=== PATIENT | male | born 1970 | race Caucasian/White ===

== ENCOUNTER 2016-11-16 19:01 | Emergency (ER) | payer OTHER ==
--- NOTE | 2016-11-16 20:12 | DIAGNOSTIC IMAGING REPORT ---
PROCEDURE: XR CHEST 2 VIEW INDICATION: FEVER TECHNIQUE: PA and lateral views. COMPARISON: None. FINDINGS: Allowing for suboptimal inspiration, there are mild parenchymal change at the left lung base. Right lung is clear. Heart and mediastinum are normal. Thorax is normal. IMPRESSION: 1. Mild increase parenchymal change at the left medial lung base consistent with atelectasis and/or pneumonia. 2. Otherwise negative chest.
--- NOTE | 2016-11-16 21:01 | ED ORDER SUMMARY ---
..... Patient: ANGELIKA PRITCHARD OrderSheet [facility] VisitID: [id number] [address] [place] [address] 45y, M Registration Date/Time: 11/16/2016 ORDER SHEET Weight: 113.3 kg (stated) Allergies: No Known Drug Allergy GENERAL ORDERS: Chest 2V Urgent (19:11 11/16/2016 EKoroleva P.A.-C) (Ack 19:14 CHagerty ER Cocoa Bean Roaster Helper) (19:52 Stiven) Liquor Merchant (Continuous) (19:11 11/16/2016 EKoroleva P.A.-C) (Ack 19:14 CHagerty ER Cocoa Bean Roaster Helper) (19:28 CBradburn R.N.) Cardiac Panel Stat (19:11 11/16/2016 EKoroleva P.A.-C) (Ack 19:14 CHagerty ER Cocoa Bean Roaster Helper) (19:27 CBradburn R.N.) EKG - ER Stat (19:11 11/16/2016 EKoroleva P.A.-C) (Ack 19:14 CHagerty ER Cocoa Bean Roaster Helper) (19:22 PWeiler ER Tech1) PCT (Procalcitonin) Urgent (19:21 11/16/2016 EKoroleva P.A.-C) (19:28 CBradburn R.N.) (Ack 19:28 CHagerty ER Cocoa Bean Roaster Helper) MEDICATION ORDERS: DuoNeb Neb Tx 1 unit dose (NOW) (19:21 11/16/2016 EKoroleva P.A.-C) (Ack 19:27 CHagerty ER Cocoa Bean Roaster Helper) (19:33 MRobideau) Tylenol PO 650 mg (NOW) (19:53 11/16/2016 EKoroleva P.A.-C) (Ack 20:13 CBradburn R.N.) (20:21 CBradburn R.N.) Azithromycin PO 500 mg (NOW) (20:52 11/16/2016 EKoroleva P.A.-C) (Ack 20:54 CBradburn R.N.) (21:00 CBradburn R.N.) Hydrocodone-APAP PO 5/325 mg (NOW, HIGH ALERT MEDICATION) (20:52 11/16/2016 EKoroleva P.A.-C) (Ack 20:54 CBradburn R.N.) (21:01 CBradburn R.N.) IV FLUIDS: IV Saline Lock (19:11 11/16/2016 EKoroleva P.A.-C) (Ack 19:16 CBradburn R.N.) (19:27 CBradburn R.N.) IV NS : initial bolus 1000 mL (1000 mL/hr), then 1000 mL/hr for X1 (NOW); Osvaldo (19:12 11/16/2016 EKoroleva P.A.-C) (Ack 19:16 CBradburn R.N.) (19:28 CBradburn R.N.) Toradol IV 30 mg (NOW) (19:54 11/16/2016 EKoroleva P.A.-C) (Ack 20:13 CBradburn R.N.) (20:21 CBradburn R.N.) ORDER SHEET NOTES: [Electronically signed by Antonina To P.A.-C (21:13 11/16/2016)] [Electronically signed by Delmy Knight R.N. (21:11/16/2016)] [Electronically locked/signed by Delmy Knight R.N. (21:11/16/2016)]
--- NOTE | 2016-11-16 21:01 | ED CLINICAL REPORT ---
Clinical Report - Physicians/Mid Levels [facility] [address] [place] [address] 11/16/2016 19:02 Patient: ANGELIKA PRITCHARD Time Seen: 19:20 Nov 16 2016. Arrived- By private vehicle. Historian- patient. HISTORY OF PRESENT ILLNESS Chief Complaint: COUGH. This started 3 days and is still present. The illness is described as mild. The patient has had sputum production, a cough and fever. No difficulty breathing, sore throat or nasal discharge. (Patient reports productive cough over the last 3 days with fever. Denies any chest pain earlier, some chest pain with vigorous coughing. Denies any nausea or vomiting. Reports body aches or arthralgias. Denies any hemoptysis. Denies any recent foreign travel. Denies any diarrhea. Denies sick contacts.). Additional history - The patient has had contact with a sick individual. REVIEW OF SYSTEMS No headache, nausea, vomiting or abdominal pain. All systems otherwise negative, except as recorded above. PAST HISTORY No history of asthma. Problems: Gastroenteritis. Puncture Wound. Soft Tissue Foreign Body. Tetanus Status. Immunizations. Back Pain. Ankle Fracture. Bipolar Disorder. Anxiety Reaction. Additional Surgeries: Ankle. Eye. Medications: Omeprazole Oral (Tablet Delayed Release 20 mg) 1 tablet, daily. Hydrochlorothiazide Oral (Capsule 12.5 mg) 1 capsule, daily. PROzac Oral (Capsule 40 mg) 2 capsules, daily. Adderall Oral (Tablet 20 mg) 2 tablets, daily. Allergies: No Known Drug Allergy. SOCIAL HISTORY Current every day light tobacco smoker. No alcohol use. ADDITIONAL NOTES The nursing notes have been reviewed. PHYSICAL EXAM Vital Signs: 11/16/2016 19:06 BP: 152/93. HR: 99. RR: 18. O2 saturation: 98%. Temp: 100.1 F. Pain level now: 4/10. Appearance: Alert. No acute distress. Eyes: Eyes normal inspection. ENT: Pharynx normal. No tonsillar exudate or trismus. CVS: Normal heart rate and rhythm. Heart sounds normal. Respiratory: No respiratory distress. Wheezing present. Mild rhonchi present in the left lung base posteriorly. Breath sounds normal. Abdomen: Soft and nontender. Skin: Skin warm. Neuro: Oriented X 3. LABS, X-RAYS, AND EKG EKG: EKG time: (1921). No acute process. Rate: 97. Normal QRS complex. Normal axis. Normal ST and T waves and QT. The study has been interpreted contemporaneously. The study has been independently viewed by me. The EKG appears to be a good tracing. Chest X-ray: (IMPRESSION: 1. Mild increase parenchymal change at the left medial lung base consistent with atelectasis and/or pneumonia. 2. Otherwise negative chest. Electronically Final signed by:Pietro Moore MD 11/16/2016 8:07:51 PM). Laboratory Tests: CBC w Diff: (MAGGIE: 11/16/2016 19:22) ( MsgRcvd 11/16/2016 20:04) Final results Test Result Flag Units (Reference) WHITE BLOOD COUNT 10.4 K/uL (4.5-11.5) RED BLOOD COUNT 4.84 M/uL (4.50-5.90) HEMOGLOBIN 14.1 gm/dL (13.5-17.5) HEMATOCRIT 41.4 % (41.0-53.0) MEAN CELL VOLUME 86 fL (80-100) MEAN CORPUSCULAR HGB 29 pg (26-34) MEAN CORPUSCULAR HGB CONC 34 g/dL (31-37) RED CELL DISTRIBUTION WIDTH 13.1 % (11.6-14.8) PLATELET COUNT 326 K/uL (150-400) NEUTROPHIL % 71.2 % (50-75) LYMPH % 21.1 L % (25-40) MONO % 7.2 % (3-14) EOSINOPHIL % 0.2 % (0-4) BASOPHIL % 0.3 % (0-2) [id number]: (MAGGIE: 11/16/2016 19:22) ( MsgRcvd 11/16/2016 20:37) Final results Test Result Flag Units (Reference) PROCALCITONIN <0.5 ng/mL (0-0.5) PCT Concentration: Interpretation : Risk/option for action PCT <=0.5 ng/mL : Systemic : Low risk forinfection(sepsis): progression to severeis not likely. : systemic infection.Local bacterial : CAUTION-PCT levelsinfection is : below 0.5 ng/mL do notpossible. : exclude an infection,because localizedinfections (withoutsystemic signs) may beassociated with suchlow levels. If PCT ismeasured very earlyafter a bacterialchallenge (usually <6hours), these valuesmay still be low. Inthis case PCT shouldbe re-assessed 6-24hours later. PCT >0.5 and : Systemic infection: Moderate risk for<= 2 ng/mL : (sepsis) is : progression to severepossible, but : systemic infection.other conditions : The patient should beare known to : closely monitoredelevate PCT. : both clinically andby re-assessing PCTwithin 6-24 hours. PCT > 2 ng/mL : Systemic infection: High risk for(sepsis) is likely: progression to severeunless other : systemic infection.causes are known. : PCT >= 10 ng/mL : Important systemic: High likelihood ofinflammatory : severe sepsis orresponse, almost : septic shock.exclusively due to:severe bacterial :sepsis or septic :shock. : CHEM 13 PANEL: (MAGGIE: 11/16/2016 19:22) ( MsgRcvd 11/16/2016 20:52) Final results Test Result Flag Units (Reference) GLUCOSE 135 H mg/dL (70-110) BUN 16 mg/dL (7-18) CREATININE 1.0 mg/dL (0.6-1.3) Estimated GFR >60 mL/min Estimated GFR- >60 mL/min Note: Persistent reduction over 3 months in eGFR<60 mL/min/1.73 m2 defines CKD. Patients with eGFR values>=60 mL/min/1.73 m2 may also have CKD if evidence ofpersistent proteinuria. Additional information may be foundat www.kidney.org. SODIUM 141 mmol/L (136-145) POTASSIUM 3.6 mmol/L (3.5-5.1) CHLORIDE 102 mmol/L (98-107) CARBON DIOXIDE 25 mmol/L (21-32) CALCIUM 8.9 mg/dL (8.5-10.1) TOTAL PROTEIN 8.2 g/dL (6.4-8.2) ALBUMIN 3.8 g/dL (3.3-5.0) BILIRUBIN, TOTAL 0.2 mg/dL (0.0-1.0) ALKALINE PHOSPHATASE 113 U/L (46-116) AST (SGOT) 20 U/L (15-37) ALT (SGPT) 38 U/L (12-78) CPK 155 U/L (24-260) MAGNESIUM 2.0 mg/dL (1.8-2.4) TROPONIN I <0.05 L ng/mL (0.00-1.5) TROPONIN REFERENCE RANGE:<0.1 NEGATIVE0.1-1.5 INDETERMINANT>1.5 POSITIVE . PROGRESS AND PROCEDURES Course of Care: Here in the ER patient received IV fluid, azithromycin as he has early signs of pneumonia on the left aspect. Patient is a smoker. Smoking cessation encouraged. Patient with no chest pain. Febrile the emergency department, given antipyretics. 11/16/2016 21:00 BP: 134/96. HR: 92. RR: 18. O2 saturation: 97%. Pain level now: 4/10. Patient is stable. Symptoms better. Patient/family counseled. Differential Diagnosis: I considered viral bronchitis, laryngotracheobronchitis, viral pneumonia, bacterial bronchitis, bacterial tracheobronchitis, bacterial pneumonia, tuberculosis, mycoplasmal bronchitis, mycoplasmal pneumonia, chlamydial bronchitis, bronchospasm, irritant bronchospasm, pulmonary embolism and adverse drug reaction as a possible cause of cough in this patient. This is a partial list of diagnoses considered. Disposition: Discharged. CLINICAL IMPRESSION Pneumonia. Vital signs recorded and reviewed; empiric antibiotics given in the ED and prescribed. INSTRUCTIONS Do not work for two days. Drink plenty of fluids. Prescription Medications: Ventolin HFA oral inhaler: inhale 1 puff for 1 week, as needed for wheezing, until symptoms improve. Dispense one (1) unit Substitution is not permissible. Robitussin A-C cough syrup take five (5) mL orally every 4 hours as needed for cough for 3 days. Dispense sixty (60) mL. No refill. Substitution is permissible. Zithromax 250 mg tablets: take 1 orally every day for 4 days. Total course 4 days. No refills. (first dose 11/17/16) Follow-up: Follow up with your doctor in three days as needed. (Electronically signed by Antonina To P.A.-C 11/16/2016 21:13)
--- NOTE | 2016-11-16 21:01 | ED ORDER SUMMARY ---
..... Patient: ANGELIKA PRITCHARD OrderSheet [facility] VisitID: [id number] [address] [place] [address] 45y, M Registration Date/Time: 11/16/2016 ORDER SHEET Weight: 113.3 kg (stated) Allergies: No Known Drug Allergy GENERAL ORDERS: Chest 2V Urgent (19:11 11/16/2016 EKoroleva P.A.-C) (Ack 19:14 CHagerty ER Joint Sealer) (19:52 Stiven) Pourer Bull Ladle (Continuous) (19:11 11/16/2016 EKoroleva P.A.-C) (Ack 19:14 CHagerty ER Joint Sealer) (19:28 CBradburn R.N.) Cardiac Panel Stat (19:11 11/16/2016 EKoroleva P.A.-C) (Ack 19:14 CHagerty ER Joint Sealer) (19:27 CBradburn R.N.) EKG - ER Stat (19:11 11/16/2016 EKoroleva P.A.-C) (Ack 19:14 CHagerty ER Joint Sealer) (19:22 PWeiler ER Tech1) PCT (Procalcitonin) Urgent (19:21 11/16/2016 EKoroleva P.A.-C) (19:28 CBradburn R.N.) (Ack 19:28 CHagerty ER Joint Sealer) MEDICATION ORDERS: DuoNeb Neb Tx 1 unit dose (NOW) (19:21 11/16/2016 EKoroleva P.A.-C) (Ack 19:27 CHagerty ER Joint Sealer) (19:33 MRobideau) Tylenol PO 650 mg (NOW) (19:53 11/16/2016 EKoroleva P.A.-C) (Ack 20:13 CBradburn R.N.) (20:21 CBradburn R.N.) Azithromycin PO 500 mg (NOW) (20:52 11/16/2016 EKoroleva P.A.-C) (Ack 20:54 CBradburn R.N.) (21:00 CBradburn R.N.) Hydrocodone-APAP PO 5/325 mg (NOW, HIGH ALERT MEDICATION) (20:52 11/16/2016 EKoroleva P.A.-C) (Ack 20:54 CBradburn R.N.) (21:01 CBradburn R.N.) IV FLUIDS: IV Saline Lock (19:11 11/16/2016 EKoroleva P.A.-C) (Ack 19:16 CBradburn R.N.) (19:27 CBradburn R.N.) IV NS : initial bolus 1000 mL (1000 mL/hr), then 1000 mL/hr for X1 (NOW); Osvaldo (19:12 11/16/2016 EKoroleva P.A.-C) (Ack 19:16 CBradburn R.N.) (19:28 CBradburn R.N.) Toradol IV 30 mg (NOW) (19:54 11/16/2016 EKoroleva P.A.-C) (Ack 20:13 CBradburn R.N.) (20:21 CBradburn R.N.) ORDER SHEET NOTES: [Electronically signed by Antonina To P.A.-C (21:13 11/16/2016)] [Electronically signed by Delmy Knight R.N. (21:11/16/2016)] [Electronically locked/signed by Delmy Knight R.N. (21:11/16/2016)]
--- NOTE | 2016-11-16 21:01 | ED NURSING NOTES ---
Clinical Report - Nurses [facility] [address] [place] [address] 11/16/2016 19:02 Patient: ANGELIKA PRITCHARD TRIAGE Triage time 19:07. Acuity: LEVEL 3. Chief Complaint: COUGH and FEVER and PAIN ON INSPIRATION and CHEST PAIN. --19:14 Delmy Knight R.N. 19:06 11/16/16. BP: 152/93 taken on the left arm, while lying. HR: 99 (regular and normal rate). RR: 18. O2 saturation: 98% on room air. Temp: 100.1 F (oral). Pain level now: 10/13. --19:14 Dlemy Knight R.N. Weight: 113.3 kg stated. Height/Length: 70 inches Per Patient. BMI: 35.8. --19:09 Delmy Knight R.N. Medications Adderall Oral (Tablet 20 mg) 2 tablets, daily. --19:10 Delmy Knight R.N. PROzac Oral (Capsule 40 mg) 2 capsules, daily. --19:11 Delmy Knight R.N. Hydrochlorothiazide Oral (Capsule 12.5 mg) 1 capsule, daily. --19:11 Delmy Knight R.N. Omeprazole Oral (Tablet Delayed Release 20 mg) 1 tablet, daily. --19:11 Delmy Knight R.N. Allergies No Known Drug Allergy. --19:12 Delmy Knight R.N. History Arrived by private vehicle. Historian: patient. Accompanied by friend. Primary physician (Lakshmi at [facility]). Onset was gradual. (3 days ago). He has had fatigue (3 days ago). He has had difficulty breathing (3 days ago). He has had moderate chest congestion (3 days ago). PAST MEDICAL HX: Immunizations: up-to-date. SOCIAL HX: Light tobacco smoker (cigarette)- less than 1/2 a pack per day. No alcohol use or drug use. ABUSE ASSESSMENT: No report of abuse. SELF HARM ASSESSMENT: A self harm assessment was performed. The patient answered "no" to the question "Have you recently felt down, depressed, or hopeless?", "Have you noticed less interest or pleasure in doing things?", "Do you have thoughts of harming or killing yourself?", "Are you here because you tried to hurt yourself?", "Have you ever tried to hurt yourself before today?", "Have you recently had thoughts about harming or killing others?" and "Do you have any dangerous items in your possession?". FALL RISK ASSESSMENT: Fall risk assessment completed. No fall risk identified. NUTRITIONAL RISK ASSESSMENT: The nutritional risk assessment revealed no deficiencies. FUNCTIONAL ASSESSMENT: Functional assessment: no impairments noted. LEARNING NEEDS ASSESSMENT: The learning needs assessment revealed no barriers. SKIN INTEGRITY ASSESSMENT: Skin integrity risk assessment completed. No skin integrity risk identified. --19:14 Delmy Knight R.N. PROBLEMS: Gastroenteritis. Puncture Wound. Soft Tissue Foreign Body. Tetanus Status. Immunizations. Back Pain. Ankle Fracture. Bipolar Disorder. Anxiety Reaction. --19:12 Delmy Knight R.N. ADDITIONAL SURGERIES: Ankle. Eye. --19:12 Delmy Knight R.N. Interventions ID band on patient. --19:14 Delmy Knight R.N. PHYSICAL ASSESSMENT Ambulatory to room. GENERAL / NEURO / PSYCH: Alert. Oriented X 4. Appears in no acute distress. HEENT: Pupils equal, round and reactive to light. Ears within normal limits. Nares within normal limits. Mouth within normal limits upon inspection. Pharynx within normal limits. Voice within normal limits. Mucous membranes are pink. RESPIRATORY: Mild respiratory distress. Respirations not labored. Abnormal breath sounds in the bases bilaterally. Nonproductive cough. CVS: Normal sinus rhythm noted. SKIN: Skin is warm and dry. Normal skin turgor. --19:15 Demly Knight R.N. NURSING PROGRESS NOTES Two patient identifiers checked. Call light placed in reach. Side rails up x 1. Bed placed in lowest position. Brakes of bed on. --19:15 Delmy Knight R.N. Patient ready for evaluation- chart flagged. --19:15 Delmy Knight R.N. EKG time: (1921). EKG was ordered, performed by a tech and shown to the PA. --19:23 Qasim Nagel, SONALI Tech1 19:22 11/16/2016 Site #1 started via IV in the right wrist with an 18g angiocath, with aseptic technique and good blood return; one attempt. Blood drawn: rainbow set. Labeled in the presence of the patient and sent to the lab. Saline lock flushed with 10 mL saline. --19:27 Delmy Knight R.N. 19:24 11/16/2016 Started bag #1 1000 mL IV Fluids IV NS (Saline); bolus of 1000 mL wide open then over 1 hour(s) via site #1. Allergies verified and confirmed 5 rights. IV patency established. IV site checked: no pain, redness, or swelling. IV flushed thoroughly pre- and post-medication administration. --19:28 Delmy Knight R.N. 19:33 11/16/2016 Duoneb (Ipratropium-Albuterol) Neb TX Nebulizer 1 unit dose given. Given by the respiratory therapist. Allergies verified and confirmed 5 rights. --19:33 Bennett Rivas 20:14 11/16/2016 Tylenol (Acetaminophen) PO Tablets 650 mg given. Allergies verified and confirmed 5 rights. --20:21 Delmy Knight R.N. 20:15 11/16/2016 IV Fluids IV NS Discontinued: bag #1 completed. Total amount infused: 1000 mL. IV patency established. IV site checked: no pain, redness, or swelling. IV flushed thoroughly. --20:20 Delmy Knight R.N. 20:16 11/16/2016 Toradol IVP 30 mg given over 2 minute(s) via site #1. Allergies verified and confirmed 5 rights. IV patency established. IV site checked: no pain, redness, or swelling. IV flushed thoroughly pre- and post-medication administration. IVP given by RN. --20:21 Delmy Knight R.N. 20:15 11/16/16. BP: 152/76. HR: 99 (regular and normal rate). RR: 16. O2 saturation: 96% on room air. Temp: deferred. Pain level now: 6/10. --20:23 Delmy Knight R.N. Reassessment after fluids administered. Overall patient status is the same- he states feels the same. RESPIRATORY: The patient reports cough is still present and currently dry. No respiratory distress. --20:23 Delmy Knight R.N. 20:54 11/16/2016 Azithromycin PO Tablets 500 mg given. Allergies verified and confirmed 5 rights. --21:00 Delmy Knight R.N. 20:54 11/16/2016 Hydrocodone-APAP (Hydrocodone-Acetaminophen) PO 5/325 mg Tablets 1 tab given. Allergies verified, confirmed 5 rights and sedative warning given to the patient. --21:01 Delmy Knight R.N. 21:00 11/16/16. BP: 134/96 taken on the left arm, while lying. HR: 92 (regular and normal rate). RR: 18 (regular and unlabored). O2 saturation: 97% on room air. Pain level now: 10/13. --21:02 Delmy Knight R.N. DISPOSITION / DISCHARGE 21:08 11/16/2016 Site #1 removed upon discharge. Catheter intact. Manual pressure and bandage applied. --21:11 Delmy Knight R.N. Condition at departure: improved. No learning barriers present. Discharge instructions provided and reviewed with the patient. Reviewed medication(s) side effects, precautions, dosing and course information. Prescription(s) given to the patient. Work note given (2 days off). Patient verbalized understanding. Written instructions provided in Kinyarwanda. The patient was discharged home and accompanied by parent. He left the Emergency Department ambulatory and via private vehicle. Parent driving. --21:13 Delmy Knight R.N. 21:11 11/16/16. BP: 146/82 taken on the left arm, while lying. HR: 90 (regular and normal rate). RR: 18 (regular and unlabored). O2 saturation: 95% on room air. Temp: 97.7 F (oral). Pain level now: 10/13. --21:13 Delmy Knight R.N. Departure time: 2110. --21:13 Delmy Knight R.N. Locked/Released at 11/16/2016 21:13 by Delmy Knight R.N.
--- NOTE | 2016-11-16 21:13 | ED DISCHARGE INSTRUCTIONS ---
Patient: ANGELIKA PRITCHARD General Instructions [facility] VisitID: [id number] [place] [address] 45y, M Registration Date/Time: 11/16/2016 Pneumonia. Vital signs recorded and reviewed; empiric antibiotics given in the ED and prescribed. INSTRUCTIONS Do not work for two days. Drink plenty of fluids. Prescription Medications: Ventolin HFA oral inhaler: inhale 1 puff for 1 week, as needed for wheezing, until symptoms improve. Dispense one (1) unit Substitution is not permissible. Robitussin A-C cough syrup take five (5) mL orally every 4 hours as needed for cough for 3 days. Dispense sixty (60) mL. No refill. Substitution is permissible. Zithromax 250 mg tablets: take 1 orally every day for 4 days. Total course 4 days. No refills. (first dose 11/17/16) Follow-up: Follow up with your doctor in three days as needed. ADDITIONAL INFORMATION Pneumonia (Adult) Pneumonia is an infection deep within the lung, in the small air sacs (alveoli). It may be due to a virus or bacteria and is usually treated with an antibiotic. Severe cases require treatment in the hospital. Milder cases can be treated at home. Symptoms usually start to improve during the first2 days of treatment. Home Care: Rest at home for the first 23 days or until you feel stronger. When resuming activity, dont let yourself become overly tired. Avoid exposure to cigarette smoke (yours or others). You may use acetaminophen (Tylenol) or ibuprofen (Motrin, Advil) to control fever or pain, unless another medicine was prescribed. [NOTE: If you have chronic liver or kidney disease or ever had a stomach ulcer or GI bleeding, talk with your doctor before using these medicines.] (Aspirin should never be used in anyone under 18 years of age who is ill with a fever. It may cause severe liver damage.) Your appetite may be poor so a light diet is fine. Keep well hydrated by drinking 68 glasses of fluids per day (water, sport drinks such as Gatorade, sodas without caffeine, juices, tea, soup, etc.). This will help loosen secretions in the lung, making it easier for you to cough up the phlegm (sputum). If you also have heart or kidney disease, check with your doctor before you drink extra amounts of fluids. Finish all antibiotic medicine prescribed, even if you are feeling better after a few days. Follow Up with your doctor in the next 23 days (or as advised) to be sure you are responding properly to the medicine. [NOTE: If you are age 65 or older, or if you have chronic lung disease (asthma, emphysema or COPD), we recommendthe pneumococcal vaccination and a yearlyinfluenzavaccination(flu-shot) every . Ask your doctor about this.] Get Prompt Medical Attention if any of the following occur: Not getting better within the first 48 hours of treatment Increasing shortness of breath or rapid breathing (over 25 breaths/minute) Coughing up blood or increasing chest pain with breathing Fever of 100.4F (38C) oral or higher, not better with fever medication Increasing weakness, dizziness or fainting Increasing thirst or dry mouth Sinus pain, headache or a stiff neck Chest pain not caused by coughing Albuterol Sulfate Pressurized inhalation, suspension What is this medicine? ALBUTEROL (al BYOO ter ole) is a bronchodilator. It helps open up the airways in your lungs to make it easier to breathe. This medicine is used to treat and to prevent bronchospasm. How should I use this medicine? This medicine is for inhalation through the mouth. Follow the directions on your prescription label. Take your medicine at regular intervals. Do not use more often than directed. Make sure that you are using your inhaler correctly. Ask you doctor or health care provider if you have any questions. Talk to your speech and hearing director regarding the use of this medicine in children. Special care may be needed. What side effects may I notice from receiving this medicine? Side effects that you should report to your doctor or health attending ambulatory care as soon as possible: allergic reactions like skin rash, itching or hives, swelling of the face, lips, or tongue breathing problems chest pain feeling faint or lightheaded, falls high blood pressure irregular heartbeat fever muscle cramps or weakness pain, tingling, numbness in the hands or feet vomiting Side effects that usually do not require medical attention (report to your doctor or health attending ambulatory care if they continue or are bothersome): cough difficulty sleeping headache nervousness or trembling stomach upset stuffy or runny nose throat irritation unusual taste What may interact with this medicine? anti-infectives like chloroquine and pentamidine caffeine cisapride diuretics medicines for colds medicines for depression or for emotional or psychotic conditions medicines for weight loss including some herbal products methadone some antibiotics like clarithromycin, erythromycin, levofloxacin, and linezolid some heart medicines steroid hormones like dexamethasone, cortisone, hydrocortisone theophylline thyroid hormones What if I miss a dose? If you miss a dose, use it as soon as you can. If it is almost time for your next dose, use only that dose. Do not use double or extra doses. Where should I keep my medicine? Keep out of the reach of children. Store at room temperature between 15 and 30 degrees C (59 and 86 degrees F). The contents are under pressure and may burst when exposed to heat or flame. Do not freeze. This medicine does not work as well if it is too cold. Throw away any unused medicine after the expiration date. Inhalers need to be thrown away after the labeled number of puffs have been used or by the expiration date; whichever comes first. Ventolin HFA should be thrown away 12 months after removing from foil pouch. Check the instructions that come with your medicine. What should I tell my health care provider before I take this medicine? They need to know if you have any of the following conditions: diabetes heart disease or irregular heartbeat high blood pressure pheochromocytoma seizures thyroid disease an unusual or allergic reaction to albuterol, levalbuterol, sulfites, other medicines, foods, dyes, or preservatives or trying to get breast-feeding What should I watch for while using this medicine? Tell your doctor or health attending ambulatory care if your symptoms do not improve. Do not use extra albuterol. If your asthma or bronchitis gets worse while you are using this medicine, call your doctor right away. If your mouth gets dry try chewing sugarless gum or sucking hard candy. Drink water as directed. You have been given the following additional information: Pneumonia (Adult) Albuterol Sulfate Pressurized inhalation, suspension Do not work for two days. (Electronically signed by Antonina To P.A.-C 11/16/2016 21:13)
--- NOTE | 2016-11-16 21:13 | ED MED RECONCILIATION SUMMARY ---
Patient: ANGELIKA PRITCHARD Medication Reconciliation Report [facility] VisitID: [id number] [place] [address] 45y, M Registration Date/Time: 11/16/2016 Weight: 113.3 kg Height/Length: 70 in. BMI: 35.8 ALLERGIES: No Known Drug Allergy The patient's Home Medications are listed below: THE FOLLOWING MEDICATIONS NEED TO BE RECONCILED: Adderall Oral (20 mg) 2 tablets, daily Hydrochlorothiazide Oral (12.5 mg) 1 capsule, daily Omeprazole Oral (20 mg) 1 tablet, daily PROzac Oral (40 mg) 2 capsules, daily The source(s) of the original Home Medication information: Not obtained. The following Medications were given to the patient in the Emergency Department: IV NS IV Fluids bolus 1000 mL wide open, administered: 11/16/2016 7:24:00 PM Duoneb [Neb Tx] Neb TX 1 unit dose, administered: 11/16/2016 7:33:00 PM Tylenol [PO] PO 650 mg, administered: 11/16/2016 8:14:00 PM Toradol [IVP] IVP 30 mg, administered: 11/16/2016 8:16:00 PM Azithromycin [PO] PO 500 mg, administered: 11/16/2016 8:54:00 PM Hydrocodone-APAP [PO] PO 1 tab, administered: 11/16/2016 8:54:00 PM The following Medications were prescribed to the patient: Ventolin HFA oral inhaler: inhale 1 puff for 1 week, as needed for wheezing, until symptoms improve. Dispense one (1) unit Substitution is not permissible. -- Antonina To P.A.Arvin Robitussin A-C cough syrup take five (5) mL orally every 4 hours as needed for cough for 3 days. Dispense sixty (60) mL. No refill. Substitution is permissible. -- Antonina To P.A.-C Zithromax 250 mg tablets: take 1 orally every day for 4 days. Total course 4 days. No refills.(first dose 11/17/16) -- Antonina To P.A.-C
--- NOTE | 2016-11-16 21:13 | ED MAR SUMMARY ---
..... Medication Administration Record [facility] [address] [place] [address] Patient: ANGELIKA PRITCHARD Visit ID: [id number] 45y, M Weight: 113.3 kg Height/Length: 70 in BMI: 35.8 ALLERGIES: No Known Drug Allergy Start 19:24 11/16/2016 Delmy Knight R.N., Stop 20:15 11/16/2016 Delmy Knight R.N. Medication Administered: IV NS (SALINE), Dose: IV Fluids over 1 hour(s), Bolus: 1000 mL wide open, Dispensed: 1000 mL bag, Site: #1 right wrist. Medication Ordered: IV NS : initial bolus 1000 mL (1000 mL/hr), then 1000 mL/hr for X1 (NOW); Osvaldo. Given 19:33 11/16/2016 Bennett Rivas, Medication Administered: DUONEB [NEB TX] (IPRATROPIUM-ALBUTEROL), Dose: 1 unit dose Nebulizer Neb TX. Medication Ordered: DuoNeb Neb Tx 1 unit dose (NOW). Given 20:14 11/16/2016 Delmy Knight R.N. Medication Administered: TYLENOL [PO] (ACETAMINOPHEN), Dose: 650 mg Tablets PO. Medication Ordered: Tylenol PO 650 mg (NOW). Given 20:16 11/16/2016 Delmy Knight R.N. Medication Administered: TORADOL [IVP], Dose: 30 mg IVP over 2 minute(s), Site: #1 right wrist. Medication Ordered: Toradol IV 30 mg (NOW). Given 20:54 11/16/2016 Delmy Knight R.N. Medication Administered: AZITHROMYCIN [PO], Dose: 500 mg Tablets PO. Medication Ordered: Azithromycin PO 500 mg (NOW). Given 20:54 11/16/2016 Delmy Knight R.N. Medication Administered: HYDROCODONE-APAP [PO] (HYDROCODONE-ACETAMINOPHEN), Dose: 1 tab 5/325 mg Tablets PO. Medication Ordered: Hydrocodone-APAP PO 5/325 mg (NOW, HIGH ALERT MEDICATION).
--- NOTE | 2016-11-16 21:13 | ED MAR SUMMARY ---
..... Medication Administration Record [facility] [address] [place] [address] Patient: ANGELIKA PRITCHARD Visit ID: [id number] 45y, M Weight: 113.3 kg Height/Length: 70 in BMI: 35.8 ALLERGIES: No Known Drug Allergy Start 19:24 11/16/2016 Delmy Knight R.N., Stop 20:15 11/16/2016 Delmy Knight R.N. Medication Administered: IV NS (SALINE), Dose: IV Fluids over 1 hour(s), Bolus: 1000 mL wide open, Dispensed: 1000 mL bag, Site: #1 right wrist. Medication Ordered: IV NS : initial bolus 1000 mL (1000 mL/hr), then 1000 mL/hr for X1 (NOW); Osvaldo. Given 19:33 11/16/2016 Bennett Rivas, Medication Administered: DUONEB [NEB TX] (IPRATROPIUM-ALBUTEROL), Dose: 1 unit dose Nebulizer Neb TX. Medication Ordered: DuoNeb Neb Tx 1 unit dose (NOW). Given 20:14 11/16/2016 Delmy Knight R.N. Medication Administered: TYLENOL [PO] (ACETAMINOPHEN), Dose: 650 mg Tablets PO. Medication Ordered: Tylenol PO 650 mg (NOW). Given 20:16 11/16/2016 Delmy Knight R.N. Medication Administered: TORADOL [IVP], Dose: 30 mg IVP over 2 minute(s), Site: #1 right wrist. Medication Ordered: Toradol IV 30 mg (NOW). Given 20:54 11/16/2016 Delmy Knight R.N. Medication Administered: AZITHROMYCIN [PO], Dose: 500 mg Tablets PO. Medication Ordered: Azithromycin PO 500 mg (NOW). Given 20:54 11/16/2016 Delmy Knight R.N. Medication Administered: HYDROCODONE-APAP [PO] (HYDROCODONE-ACETAMINOPHEN), Dose: 1 tab 5/325 mg Tablets PO. Medication Ordered: Hydrocodone-APAP PO 5/325 mg (NOW, HIGH ALERT MEDICATION).
--- NOTE | 2016-11-16 21:13 | ED MED RECONCILIATION SUMMARY ---
Patient: ANGELIKA PRITCHARD Medication Reconciliation Report [facility] VisitID: [id number] [place] [address] 45y, M Registration Date/Time: 11/16/2016 Weight: 113.3 kg Height/Length: 70 in. BMI: 35.8 ALLERGIES: No Known Drug Allergy The patient's Home Medications are listed below: THE FOLLOWING MEDICATIONS NEED TO BE RECONCILED: Adderall Oral (20 mg) 2 tablets, daily Hydrochlorothiazide Oral (12.5 mg) 1 capsule, daily Omeprazole Oral (20 mg) 1 tablet, daily PROzac Oral (40 mg) 2 capsules, daily The source(s) of the original Home Medication information: Not obtained. The following Medications were given to the patient in the Emergency Department: IV NS IV Fluids bolus 1000 mL wide open, administered: 11/16/2016 7:24:00 PM Duoneb [Neb Tx] Neb TX 1 unit dose, administered: 11/16/2016 7:33:00 PM Tylenol [PO] PO 650 mg, administered: 11/16/2016 8:14:00 PM Toradol [IVP] IVP 30 mg, administered: 11/16/2016 8:16:00 PM Azithromycin [PO] PO 500 mg, administered: 11/16/2016 8:54:00 PM Hydrocodone-APAP [PO] PO 1 tab, administered: 11/16/2016 8:54:00 PM The following Medications were prescribed to the patient: Ventolin HFA oral inhaler: inhale 1 puff for 1 week, as needed for wheezing, until symptoms improve. Dispense one (1) unit Substitution is not permissible. -- Antonina To P.A.Arvin Robitussin A-C cough syrup take five (5) mL orally every 4 hours as needed for cough for 3 days. Dispense sixty (60) mL. No refill. Substitution is permissible. -- Antonina To P.A.-C Zithromax 250 mg tablets: take 1 orally every day for 4 days. Total course 4 days. No refills.(first dose 11/17/16) -- Antonina To P.A.-C
== END 2016-11-16 21:11 | disposition home or self-care (01) ==
LOC: ED SRH 19:01
DX: J18.9 Pneumonia, unspecified organism (principal); F17.210 Nicotine dependence, cigarettes, uncomplicated; Z79.899 Other long term (current) drug therapy
CPT/HCPCS: 90100; 90616; 92610; 92720; 93004; 95059